=== PATIENT | female | born 1940 | race Caucasian/White ===

== ENCOUNTER → 2017-04-11 | Outpatient (CLI) | payer MEDICARE, BC ==
--- NOTE | ~2017-04-11 | PUL ---
PATIENT'S NAME: KALE [facility] AGE: 77 Y [address] ROOM: [place] [address] LOCATION: [facility] ADMIT DATE: 04/11/2017 Pulmonary DISCHARGE DATE: FAMILY PHYSICIAN: Ramo Turcios MD ATTENDING PHYSICIAN: Wesly Caruso NAME OF PROCEDURE: Sleep Study PROCEDURE DATE: 04/11/17 TECH: ALLIE Spence TEST #: [facility] [place]# [id number] TECHNICAL PARAMETERS: The patient was studied using International 10/20 measuring system. While the patient was studied, there was continuous monitoring of EEG (8 leads), EOG (2 leads), EKG (3 leads), submental EMG (3 leads), tibial (4 leads), respiratory inductive plethysmography (RIP) for thoracic and abdominal effort, oral and nasal airflow with a thermocouple and pressure transducer, and oximetry. The commercial hvac technician also performed visual and auditory observations noting things like body position, patient's status, breath sounds, artifact, snoring level and patient comments. Continuous sound was monitored using a 2-way speaker system and video monitoring was performed using an infrared camera. Review of the entire study was performed epoch by epoch utilizing a single epoch and multiple epoch capability sleep system. MEDICAL HISTORY: Patient is a 77-year-old overweight woman with daytime sleepiness and snoring. SLEEP STAGE SUMMARY: The patient was studied for 450 minutes of which she slept 331 minutes. She fell asleep in 16 minutes and slept for 74% of the night. Sleep architecture revealed a decline in slow wave and a mild decline in REM sleep. RESPIRATORY SUMMARY: Oxygen saturations ranged from 81-94%. There were 58 apneas and 51 hypopneas for an apnea/hypopnea index moderately elevated at 20 events per hour. EKG SUMMARY: Average heart rate 54 beats per minute. LIMB MOVEMENT SUMMARY: No clinically relevant periodic limb movements were noted. SUMMARY: Moderate obstructive sleep apnea. PATIENT'S NAME: KALE [facility] AGE: 77 Y [address] ROOM: [place] [address] LOCATION: [facility] ADMIT DATE: 04/11/2017 Pulmonary DISCHARGE DATE: FAMILY PHYSICIAN: Ramo Turcios MD ATTENDING PHYSICIAN: Wesly Caruso PLAN: Consider a repeat study for initiation and titration of CPAP. RAMO CUMMINGS MD DEC/mh /[id number] dtt: 04/25/17 0805 , Ramo Cummings dtd: 04/13/17 1320
== END | disposition disaster alternative care site (69) ==
LOC: GSLP 20:16
DX: R09.02 Hypoxemia (principal); G47.33 Obstructive sleep apnea (adult) (pediatric); I27.2 Other secondary pulmonary hypertension